=== PATIENT | male | born 1940 | race Caucasian/White ===

== ENCOUNTER 2025-02-14 13:10 | Inpatient (IN) | payer MEDICARE, OTHER ==
[~2025-02-14] VITALS: Ht 165.1 cm; Wt 86.2 kg
[2025-02-14 13:30] LABS: PLATELET COUNT (AUTO) 199 K/uL (152-348); RED BLOOD CELL COUNT(AUTO) 4.40 MIL/uL (4.06-5.63); RED CELL DISTRIBUTION WIDTH 15.5 % (12.1-16.2); WHITE BLOOD COUNT (AUTO) 6.7 K/uL (3.6-10.2)
[2025-02-14 13:41] LABS: CREATININE 0.9 mg/dL (0.6-1.3); SODIUM SERUM 142 mmol/L (136-145); UREA NITROGEN, BLOOD 26 mg/dL (7-18)
[2025-02-14 13:46] LABS: ASPARTATE AMINOTRANSFERASE 8 U/L (15-37); TOTAL PROTEIN, SERUM 6.6 g/dL (6.4-8.2)
[2025-02-14 13:51] LABS: *BILIRUBIN,URIN NEGATIVE (NEGATIVE); *BLOOD, URINE 1+ (NEGATIVE); *CLARITY,URINE CLEAR (CLEAR); *COLOR,URINE YELLOW (YELLOW); *KETONES,URINE NEGATIVE (NEGATIVE); *PROTEIN,URINE 1+ (NEGATIVE); *UROBILINOGEN,URINE 0.2 E.U./dl (NORMAL); LEUKOCYTE ESTERASE ,URINE 1+ (NEGATIVE); NITRITE, URINE NEGATIVE (NEGATIVE)
[2025-02-14 13:57] LABS: UGLUCOSE 2+ (NEGATIVE)
[2025-02-14 14:00] LABS: *AMPHETAMINE, URINE NEGATIVE (NEGATIVE); *BARBITURATE, URINE NEGATIVE (NEGATIVE); *BENZODIAZEPINE, URINE NEGATIVE (NEGATIVE); *CANNABINOID, URINE NEGATIVE (NEGATIVE); *COCCAINE, URINE NEGATIVE (NEGATIVE); *OPIATE, URINE NEGATIVE (NEGATIVE); *PHENCYCLIDINE SCREEN,URINE NEGATIVE (NEGATIVE); FENTANYL, URINE NEGATIVE (NEGATIVE)
[2025-02-14 14:02] LABS: ETHANOL < 3 MG/DL (0-10)
[2025-02-14] MEDS ORDERED: LORA-259 PO (14:04)
[2025-02-14] MEDS ORDERED: MAGN400O6 PO (14:04)
[2025-02-14] MEDS ORDERED: APIX5TAB PO (14:04)
[2025-02-14] MEDS ORDERED: ISOS30TA9 PO (14:04)
[2025-02-14] MEDS ORDERED: PERM60CR TP (14:04)
[2025-02-14] MEDS ORDERED: IVER3TAB2 PO (14:04)
[2025-02-14] MEDS ORDERED: DIVA125T2 PO (14:04)
[2025-02-14] MEDS ORDERED: ATOR40TA PO (14:04)
[2025-02-14] MEDS ORDERED: FAMO10TA41 PO (14:04)
[2025-02-14] MEDS ORDERED: AMLO5TAB6 PO (14:04)
[2025-02-14] MEDS ORDERED: MULT-594 PO (14:04)
[2025-02-14] MEDS ORDERED: SACU1TAB PO (14:04)
[2025-02-14] MEDS ORDERED: FURO-152 PO (14:04)
[2025-02-14] MEDS ORDERED: BISA10SU61 RC (14:04)
[2025-02-14] MEDS ORDERED: DOCU-141 PO (14:04)
[2025-02-14] MEDS ORDERED: [UNRECOGNIZED DRUG - CODE] IN (14:04)
[2025-02-14] MEDS ORDERED: METO25TA6 PO (14:04)
[2025-02-14] MEDS ORDERED: TAMS0.4C PO (14:04)
[2025-02-14] MEDS ORDERED: ACET-2154 PO (14:04)
[2025-02-14] MEDS ORDERED: EMPA10TA PO (14:04)
[2025-02-14] MEDS ORDERED: LEVO75TA7 PO (14:04)
[2025-02-14] MEDS ORDERED: [UNRECOGNIZED DRUG - CODE] PO (14:04)
[2025-02-14 14:21] LABS: SQUAMOUS EPITHELIAL CELL,UR FEW /HPF (NONE SEEN)
[2025-02-14] MEDS ORDERED: OLANZAPINE 5 MG TABLET ONE (15:00)
[2025-02-14] MEDS: OLANZAPINE 5 MG TABLET PO ONE (15:03)
[2025-02-14] MEDS ORDERED: OLANZAPINE 10 MG VIAL IM ONE ×2 (16:07→16:11)
[2025-02-14] MEDS: OLANZAPINE 10 MG VIAL IM ONE (16:15)
[2025-02-14 16:20] VITALS: BP 158/78
[2025-02-14] MEDS ORDERED: NPH,100V SQ ×2 (17:19→17:29)
[2025-02-14] MEDS ORDERED: MULT-365 PO (17:19)
[2025-02-14] MEDS ORDERED: FAMO-132 PO (17:29)
[2025-02-14] MEDS ORDERED: GLUC1VIA21 IM (17:29)
[2025-02-14] MEDS ORDERED: INSU100V44 SQ ×2 (17:29→17:31)
[2025-02-14] MEDS ORDERED: DEXTROSE 50% 50 ML DISP.SYRIN IV PRN (19:00)
[2025-02-14] MEDS ORDERED: MAGNESIUM HYDROXIDE 30 ML LIQUID UDC PO PRN (20:00)
[2025-02-14] MEDS ORDERED: TEMAZEPAM 7.5 MG CAPSULE PO PRN (20:00)
[2025-02-14] MEDS ORDERED: MAG HYDROX/AL HYDROX/SIMETH 30 ML LIQUID UDC PO PRN (20:00)
[2025-02-14 20:10] VITALS: BP 131/79; TEMP 98.1; O2SAT 97
[2025-02-14] MEDS: BLOOD SUGAR DIAGNOSTIC 1 EACH STRIP VI ONE (20:41)
[2025-02-14] MEDS: BLOOD SUGAR DIAGNOSTIC 1 EACH STRIP VI SCH (20:41)
[2025-02-14] MEDS: LORAZEPAM 1 MG TABLET PO PRN (20:55)
[2025-02-15] MEDS: LORAZEPAM 0.5 MG TABLET PO ONE (09:05)
[2025-02-15 09:21] VITALS: BP 134/66; TEMP 98; O2SAT 98
[2025-02-15] MEDS ORDERED: MAGNESIUM HYDROXIDE 30 ML LIQUID UDC PO PRN (10:45)
[2025-02-15] MEDS ORDERED: BISACODYL 10 MG SUPP.RECT RC PRN (10:45)
[2025-02-15] MEDS ORDERED: ACETAMINOPHEN 325 MG TABLET-SA PATIENTS-PAIN ONLY PO PRN (10:45)
[2025-02-15] MEDS ORDERED: INSULIN LISPRO 1000 UNITS/10 ML VIAL(HUMALOG) SQ PRN (10:45)
[2025-02-15] MEDS: INSULIN REGULAR, HUMAN 1000 UNIT/10 ML VIAL SQ PRN (11:39)
[2025-02-15] MEDS ORDERED: INSULIN LISPRO 1000 UNITS/10 ML VIAL(HUMALOG) SQ SCH (12:00)
[2025-02-15] MEDS: ISOSORBIDE DINITRATE 10 MG TABLET PO SCH (12:54)
[2025-02-15] MEDS: LORAZEPAM 1 MG TABLET PO PRN (14:22)
[2025-02-15 15:18] VITALS: BP 132/83; TEMP 98; O2SAT 98
[2025-02-15] MEDS: OLANZAPINE 10 MG VIAL IM ONE (16:25)
[2025-02-15] MEDS: SACUBITRIL/VALSARTAN 24 MG-26 TABLET PO SCH (17:00)
[2025-02-15] MEDS: METOPROLOL TARTRATE 25 MG TABLET PO SCH (17:00)
[2025-02-15] MEDS: APIXABAN 5 MG TABLET PO SCH (17:07)
[2025-02-15 20:00] VITALS: BP 125/47; TEMP 97.7; O2SAT 97
[2025-02-15] MEDS ORDERED: INSULIN NPH 1,000 UNITS/10 ML VIAL SQ SCH (21:00)
[2025-02-15] MEDS: TAMSULOSIN HCL 0.4 MG CAP.SR.24H PO SCH (21:00)
[2025-02-15] MEDS: ATORVASTATIN 40 MG TABLET PO SCH (21:00)
[2025-02-15] MEDS: INSULIN REGULAR, HUMAN 300 UNITS/3 ML VIAL SQ PRN (21:23)
[2025-02-16] MEDS: LEVOTHYROXINE SODIUM 75 MCG TABLET PO SCH (06:47)
[2025-02-16] MEDS: FAMOTIDINE 20 MG TABLET PO SCH (06:48)
[2025-02-16 08:00] VITALS: BP 134/64; TEMP 97.7; O2SAT 99
[2025-02-16] MEDS ORDERED: MULTIVITAMINS W MINERALS PO SCH (09:00)
[2025-02-16] MEDS ORDERED: INSULIN NPH 1,000 UNITS/10 ML VIAL SQ SCH (09:00)
[2025-02-16] MEDS: DIVALPROEX 125 MG TABLET.DR PO SCH (09:51)
[2025-02-16] MEDS: AMLODIPINE 5 MG TABLET PO SCH (09:52)
[2025-02-16] MEDS: DOCUSATE SODIUM 100 MG CAPSULE PO SCH (09:52)
[2025-02-16] MEDS: MULTIVIT, IRON, MIN NO. 8, FA TABLET PO SCH (09:52)
[2025-02-16] MEDS: FUROSEMIDE 20 MG TABLET PO SCH (09:52)
[2025-02-16] MEDS: FINASTERIDE 5 MG TABLET PO SCH (09:52)
[2025-02-16] MEDS: PERMETHRIN 5% CREAM 60 GM TUBE TP SCH (09:59)
[2025-02-16] MEDS: EMPAGLIFLOZIN 10 MG TABLET PO SCH (10:09)
[2025-02-16 16:03] VITALS: BP 133/72; TEMP 97.7; O2SAT 97
[2025-02-16] MEDS: DIVALPROEX SPRINKLE 125 MG CAP.SPRINK PO SCH (17:41)
[2025-02-16 20:22] VITALS: BP 133/73; TEMP 97.7; O2SAT 100
[2025-02-16] MEDS: TEMAZEPAM 7.5 MG CAPSULE PO PRN (23:33)
[2025-02-17] MEDS: IVERMECTIN 3 MG TABLET PO SCH (07:34)
[2025-02-17 08:42] VITALS: BP 107/64; TEMP 97.7; O2SAT 99
[2025-02-17] MEDS: REMEDY ESSENTIAL ZINC PASTE 113 GM TOP PRN (09:03)
[2025-02-17 16:25] VITALS: BP 144/76; TEMP 97.7; O2SAT 100
[2025-02-17 18:54] LABS: PLATELET COUNT (AUTO) 210 K/uL (152-348); RED BLOOD CELL COUNT(AUTO) 4.47 MIL/uL (4.06-5.63); RED CELL DISTRIBUTION WIDTH 15.6 % (12.1-16.2); WHITE BLOOD COUNT (AUTO) 7.1 K/uL (3.6-10.2)
[2025-02-17 20:06] VITALS: BP 132/68; TEMP 97.8; O2SAT 99
[2025-02-17] MEDS: ACETAMINOPHEN 325 MG TABLET PO PRN (23:23)
[2025-02-18 08:24] VITALS: BP 125/57; TEMP 97.7; O2SAT 99
[2025-02-18 16:22] VITALS: BP 120/75; TEMP 97.7; O2SAT 100
[2025-02-18] MEDS: DIVALPROEX 250 MG TABLET.DR PO SCH (20:12)
[2025-02-18 20:15] VITALS: BP 129/64; TEMP 98; O2SAT 98
[2025-02-19 08:46] VITALS: BP 127/83; TEMP 97.8; O2SAT 99
[2025-02-19 17:09] VITALS: BP 98/60; TEMP 97.7; O2SAT 100
[2025-02-19 20:00] VITALS: BP 137/86; TEMP 97.9; O2SAT 98
[2025-02-20 09:50] VITALS: BP 126/60; TEMP 97.9; O2SAT 98
[2025-02-20] MEDS: GEL BASE NO.41 100 GM GEL..GRAM. TOP SCH (16:00)
[2025-02-20 16:27] VITALS: BP 93/48; TEMP 98.1; O2SAT 97
[2025-02-20 20:04] VITALS: BP 112/56; TEMP 97.9; O2SAT 96
[2025-02-21 08:43] VITALS: BP 92/56; TEMP 98; O2SAT 96
[2025-02-21 15:18] VITALS: BP 110/57; TEMP 98; O2SAT 98
[2025-02-21 20:00] VITALS: O2SAT 95
[2025-02-22 07:44] VITALS: BP 99/53; TEMP 98; O2SAT 96
[2025-02-22 12:12] LABS: PLATELET COUNT (AUTO) 147 K/uL (152-348); RED BLOOD CELL COUNT(AUTO) 4.54 MIL/uL (4.06-5.63); RED CELL DISTRIBUTION WIDTH 15.3 % (12.1-16.2); WHITE BLOOD COUNT (AUTO) 6.1 K/uL (3.6-10.2)
[2025-02-22 12:19] LABS: CREATININE 0.8 mg/dL (0.6-1.3); SODIUM SERUM 147 mmol/L (136-145); UREA NITROGEN, BLOOD 39 mg/dL (7-18)
[2025-02-22 15:17] VITALS: BP 120/41; TEMP 97.8; O2SAT 94
[2025-02-23 08:31] VITALS: BP 115/73; TEMP 98; O2SAT 96
[2025-02-23] MEDS: DIVALPROEX SPRINKLE 125 MG CAP.SPRINK PO SCH ×3 (09:52→20:36)
[2025-02-23 12:06] LABS: PLATELET COUNT (AUTO) 166 K/uL (152-348); RED BLOOD CELL COUNT(AUTO) 4.52 MIL/uL (4.06-5.63); RED CELL DISTRIBUTION WIDTH 15.2 % (12.1-16.2); WHITE BLOOD COUNT (AUTO) 6.3 K/uL (3.6-10.2)
[2025-02-23 12:14] LABS: CREATININE 1.0 mg/dL (0.6-1.3); SODIUM SERUM 150 mmol/L (136-145); UREA NITROGEN, BLOOD 37 mg/dL (7-18)
[2025-02-23 15:44] VITALS: BP 138/100; TEMP 97.8; O2SAT 96
[2025-02-23 21:12] VITALS: BP 110/71; TEMP 97.9; O2SAT 93
[2025-02-24 08:08] LABS: PLATELET COUNT (AUTO) 126 K/uL (152-348); RED BLOOD CELL COUNT(AUTO) 4.44 MIL/uL (4.06-5.63); RED CELL DISTRIBUTION WIDTH 16.2 % (12.1-16.2); WHITE BLOOD COUNT (AUTO) 8.3 K/uL (3.6-10.2)
[2025-02-24 08:26] LABS: CREATININE 1.2 mg/dL (0.6-1.3); SODIUM SERUM 149 mmol/L (136-145); UREA NITROGEN, BLOOD 44 mg/dL (7-18)
[2025-02-24 08:46] VITALS: BP 131/68; TEMP 97.8; O2SAT 96
[2025-02-24 16:33] VITALS: BP 131/77; TEMP 98; O2SAT 96
[2025-02-24] MEDS: GLUCERNA SHAKE 237 ML CAN PO SCH (17:18)
[2025-02-24 20:14] VITALS: BP 122/75; TEMP 97.2; O2SAT 98
[2025-02-25 08:43] VITALS: BP 138/67; TEMP 97.8; O2SAT 96
[2025-02-25 12:21] VITALS: BP 149/85
[2025-02-25 12:53] LABS: CREATININE 1.1 mg/dL (0.6-1.3); SODIUM SERUM 151 mmol/L (136-145); UREA NITROGEN, BLOOD 45 mg/dL (7-18)
[2025-02-25] MEDS ORDERED: NUT.237L36 PO (16:28)
[2025-02-25] MEDS ORDERED: HYDR-5156 PO (16:28)
[2025-02-25] MEDS ORDERED: PETR113P TP (16:28)
[2025-02-25] MEDS ORDERED: DIVA125C2 PO ×2 (16:28)
[2025-02-25] MEDS ORDERED: THERAHONEY TP (16:28)
[2025-02-25] MEDS ORDERED: TEMA7.5C PO (16:28)
== END 2025-02-25 15:09 | disposition short-term general hospital (02) | DRG 885 ==
LOC: ER 13:10 → GPS 17:22
PROVIDERS: ADMIT Psychiatry & Neurology Psychosomatic Medicine; ATTEND Nurse Practitioner Family
DX: F29 Unspecified psychosis not due to a substance or known physiological condition (principal); I11.0 Hypertensive heart disease with heart failure; L89.899 Pressure ulcer of other site, unspecified stage; F03.911 Unspecified dementia, unspecified severity, with agitation; I70.248 Atherosclerosis of native arteries of left leg with ulceration of other part of lower leg; R13.10 Dysphagia, unspecified; I50.9 Heart failure, unspecified; N39.0 Urinary tract infection, site not specified; F03.93 Unspecified dementia, unspecified severity, with mood disturbance; E66.9 Obesity, unspecified; E11.40 Type 2 diabetes mellitus with diabetic neuropathy, unspecified; E03.9 Hypothyroidism, unspecified; L97.822 Non-pressure chronic ulcer of other part of left lower leg with fat layer exposed; I48.91 Unspecified atrial fibrillation; E78.5 Hyperlipidemia, unspecified; Z68.31 Body mass index [BMI] 31.0-31.9, adult; N40.0 Benign prostatic hyperplasia without lower urinary tract symptoms; Z91.128 Patient's intentional underdosing of medication regimen for other reason; K21.9 Gastro-esophageal reflux disease without esophagitis; E11.51 Type 2 diabetes mellitus with diabetic peripheral angiopathy without gangrene; I25.10 Atherosclerotic heart disease of native coronary artery without angina pectoris; R26.2 Difficulty in walking, not elsewhere classified; Z79.4 Long term (current) use of insulin; Z79.899 Other long term (current) drug therapy; Z79.84 Long term (current) use of oral hypoglycemic drugs; Z95.0 Presence of cardiac pacemaker
CPT/HCPCS: 36415; 83735; 84100; 85025; 85610; 87086; 93005; G0480; J1815; J2358; J3490

== ENCOUNTER 2025-02-25 15:22 | Inpatient (IN) | payer MEDICARE, OTHER ==
[~2025-02-25] VITALS: Ht 165.1 cm; Wt 86.2 kg
[~2025-02-25 15:22] MED LIST: ACET-2154 PO; AMLO5TAB6 PO; APIX5TAB PO; ATOR40TA PO; BISA10SU61 RC; DOCU-141 PO; EMPA10TA PO; FAMO-132 PO; FURO-152 PO; GLUC1VIA21 IM; INSU100V44 SQ; ISOS30TA9 PO; IVER3TAB2 PO; LEVO75TA7 PO; MAGN400O6 PO; METO25TA6 PO; MULT-365 PO; NPH,100V SQ; PERM60CR TP; SACU1TAB PO; TAMS0.4C PO; [UNRECOGNIZED DRUG - CODE] PO
[2025-02-25] MEDS ORDERED: NUT.237L36 PO (16:28)
[2025-02-25] MEDS ORDERED: PETR113P TP (16:28)
[2025-02-25] MEDS ORDERED: DIVA125C2 PO ×2 (16:28)
[2025-02-25] MEDS ORDERED: LORA-259 PO (16:28)
[2025-02-25] MEDS ORDERED: THERAHONEY TP (16:28)
[2025-02-25] MEDS ORDERED: TEMA7.5C PO (16:28)
[2025-02-25] MEDS ORDERED: HYDR-5156 PO (16:28)
[2025-02-25 16:43] VITALS: BP 144/91; TEMP 97.5; O2SAT 98
[2025-02-25] MEDS ORDERED: BISACODYL 10 MG SUPP.RECT RC PRN (17:30)
[2025-02-25] MEDS ORDERED: MAGNESIUM HYDROXIDE 30 ML LIQUID UDC PO PRN (17:30)
[2025-02-25] MEDS ORDERED: ONDANSETRON 4 MG/2 ML VIAL IV PRN (17:30)
[2025-02-25] MEDS: SACUBITRIL/VALSARTAN 24 MG-26 TABLET PO SCH (18:30)
[2025-02-25 19:48] VITALS: BP 158/90; TEMP 98.5; O2SAT 95
[2025-02-25] MEDS: METOPROLOL TARTRATE 25 MG TABLET PO SCH (20:07)
[2025-02-25] MEDS: LORAZEPAM 1 MG TABLET PO PRN (20:07)
[2025-02-25] MEDS: ISOSORBIDE DINITRATE 20 MG TABLET PO SCH (20:08)
[2025-02-25] MEDS: APIXABAN 5 MG TABLET PO SCH (20:09)
[2025-02-25] MEDS: IV D5 1/2 NS 1000 ML 1,000 ML IV PRN (20:20)
[2025-02-25] MEDS: ATORVASTATIN 40 MG TABLET PO SCH (20:27)
[2025-02-25] MEDS: TAMSULOSIN HCL 0.4 MG CAP.SR.24H PO SCH (20:27)
[2025-02-25] MEDS: GLUCERNA 1.2 1000ML LIQUID PO SCH (21:22)
[2025-02-26] MEDS: TEMAZEPAM 7.5 MG CAPSULE PO PRN (00:53)
[2025-02-26 04:28] VITALS: BP 113/67; TEMP 98; O2SAT 95
[2025-02-26 06:26] LABS: PLATELET COUNT (AUTO) 161 K/uL (152-348); RED BLOOD CELL COUNT(AUTO) 4.67 MIL/uL (4.06-5.63); RED CELL DISTRIBUTION WIDTH 14.9 % (12.1-16.2); WHITE BLOOD COUNT (AUTO) 6.2 K/uL (3.6-10.2)
[2025-02-26 06:44] LABS: CREATININE 1.0 mg/dL (0.6-1.3); SODIUM SERUM 151 mmol/L (136-145); UREA NITROGEN, BLOOD 36 mg/dL (7-18)
[2025-02-26] MEDS: FAMOTIDINE 20 MG TABLET PO SCH (06:44)
[2025-02-26] MEDS: LEVOTHYROXINE SODIUM 75 MCG TABLET PO SCH (06:44)
[2025-02-26 07:47] VITALS: BP 148/97; TEMP 98.4; O2SAT 94
[2025-02-26] MEDS: DOCUSATE SODIUM 100 MG CAPSULE PO SCH (08:30)
[2025-02-26] MEDS: DIVALPROEX SPRINKLE 125 MG CAP.SPRINK PO SCH ×2 (08:30→19:00)
[2025-02-26] MEDS: FINASTERIDE 5 MG TABLET PO SCH (08:35)
[2025-02-26] MEDS: MULTIVITAMINS,THERAPEUTIC TABLET PO SCH (08:35)
[2025-02-26] MEDS: AMLODIPINE 5 MG TABLET PO SCH (08:35)
[2025-02-26] MEDS ORDERED: MEDIHONEY= THERAHONEY 1.5 OZ TUBE TOP SCH (10:00)
[2025-02-26] MEDS: GELATIN SPONGE,ABSORBABLE 1 EACH SPONGE TP SCH (12:19)
[2025-02-26 14:59] VITALS: BP 107/79; TEMP 97.6; O2SAT 93
[2025-02-26 20:59] VITALS: BP 131/62; O2SAT 96
[2025-02-27] VITALS (12 sets, daily range): BP systolic 93–151; BP diastolic 46–80; TEMP 97.3–97.7; O2SAT 92–99
[2025-02-27] MEDS: ACETAMINOPHEN 325 MG TABLET PO PRN (01:05)
[2025-02-27 05:08] LABS: *BILIRUBIN,URIN 1+ (NEGATIVE); *BLOOD, URINE 2+ (NEGATIVE); *CLARITY,URINE TURBID (CLEAR); *COLOR,URINE YELLOW (YELLOW); *KETONES,URINE TRACE (NEGATIVE); *PROTEIN,URINE 1+ (NEGATIVE); *UROBILINOGEN,URINE 1.0 E.U./dl (NORMAL); LEUKOCYTE ESTERASE ,URINE TRACE (NEGATIVE); NITRITE, URINE NEGATIVE (NEGATIVE); UGLUCOSE 3+ (NEGATIVE)
[2025-02-27 05:18] LABS: *CREATININE,URINE 117.3 mg/dL (30-125); *SODIUM RNDM,URINE 47.0 mmol/L (40-220); *URINE TOTAL PROTEIN RANDOM 48.3 mg/dL (<150/24HR)
[2025-02-27 05:28] LABS: YEAST,URINE MANY /HPF (NONE SEEN)
[2025-02-27 05:29] LABS: SQUAMOUS EPITHELIAL CELL,UR FEW /HPF (NONE SEEN)
[2025-02-27 05:59] LABS: PLATELET COUNT (AUTO) 163 K/uL (152-348); RED BLOOD CELL COUNT(AUTO) 4.51 MIL/uL (4.06-5.63); RED CELL DISTRIBUTION WIDTH 14.6 % (12.1-16.2); WHITE BLOOD COUNT (AUTO) 6.3 K/uL (3.6-10.2)
[2025-02-27 06:10] LABS: ASPARTATE AMINOTRANSFERASE 9 U/L (15-37); CREATINE KINASE, TOTAL 94 U/L (39-308); CREATININE 0.9 mg/dL (0.6-1.3); SODIUM SERUM 150 mmol/L (136-145); TOTAL PROTEIN, SERUM 6.4 g/dL (6.4-8.2); UREA NITROGEN, BLOOD 31 mg/dL (7-18)
[2025-02-27] MEDS ORDERED: POTASSIUM CHLORIDE 20 MEQ TAB.PRT.SR PO ONE (10:00)
[2025-02-27] MEDS ORDERED: [UNRECOGNIZED DRUG - CODE] IV (10:13)
[2025-02-27] MEDS: MEDIHONEY= THERAHONEY 1.5 OZ TUBE TOP SCH (10:42)
[2025-02-27] MEDS: IV D5W 1000ML 1,000 ML IV PRN (12:18)
[2025-02-27] MEDS: POTASSIUM CHLORIDE 20 MEQ POWDER PACKET PO ONE (17:12)
[2025-02-28 05:32] VITALS: BP 110/51; TEMP 96.8; O2SAT 95
[2025-02-28 07:19] LABS: PLATELET COUNT (AUTO) 161 K/uL (152-348); RED BLOOD CELL COUNT(AUTO) 4.30 MIL/uL (4.06-5.63); RED CELL DISTRIBUTION WIDTH 14.9 % (12.1-16.2); WHITE BLOOD COUNT (AUTO) 5.6 K/uL (3.6-10.2)
[2025-02-28 07:40] LABS: CREATININE 1.0 mg/dL (0.6-1.3); SODIUM SERUM 145 mmol/L (136-145); UREA NITROGEN, BLOOD 23 mg/dL (7-18)
[2025-02-28 07:42] VITALS: BP 93/50; TEMP 97.5; O2SAT 99
[2025-02-28 09:45] VITALS: BP 124/54; TEMP 97.6; O2SAT 99
[2025-02-28 11:07] LABS: PTH, INTACT 22 pg/mL (15-65)
[2025-02-28 12:02] VITALS: BP 128/71; TEMP 97.7; O2SAT 98
[2025-02-28] MEDS ORDERED: GLUCERNA SHAKE 237 ML CAN PO SCH (17:00)
[2025-03-02 14:09] LABS: A/G RATIO 1.0 (0.7-1.7); BETA GLOBULIN 0.9 g/dL (0.7-1.3); GLOBULIN, TOTAL 2.9 g/dL (2.2-3.9); M-SPIKE Not Observed g/dL (Not Observed); PROTEIN, TOTAL 5.8 g/dL (6.0-8.5)
== END 2025-02-28 13:30 | DRG 640 ==
LOC: MEDSURG3 15:22 → TELE3 02-27 11:40
PROVIDERS: ADMIT Nurse Practitioner Acute Care; ATTEND Nurse Practitioner Acute Care
DX: E86.0 Dehydration (principal); G92.8 Other toxic encephalopathy; Z66 Do not resuscitate; F03.911 Unspecified dementia, unspecified severity, with agitation; E87.0 Hyperosmolality and hypernatremia; N39.0 Urinary tract infection, site not specified; N17.9 Acute kidney failure, unspecified; Z79.01 Long term (current) use of anticoagulants; Z68.31 Body mass index [BMI] 31.0-31.9, adult; E11.51 Type 2 diabetes mellitus with diabetic peripheral angiopathy without gangrene; I70.248 Atherosclerosis of native arteries of left leg with ulceration of other part of lower leg; E03.9 Hypothyroidism, unspecified; I10 Essential (primary) hypertension; F03.93 Unspecified dementia, unspecified severity, with mood disturbance; L97.822 Non-pressure chronic ulcer of other part of left lower leg with fat layer exposed; Z91.199 Patient's noncompliance with other medical treatment and regimen due to unspecified reason; E66.9 Obesity, unspecified; E30.9 Disorder of puberty, unspecified; E78.5 Hyperlipidemia, unspecified; N40.0 Benign prostatic hyperplasia without lower urinary tract symptoms; Z79.890 Hormone replacement therapy; E11.40 Type 2 diabetes mellitus with diabetic neuropathy, unspecified; I48.91 Unspecified atrial fibrillation; Z79.4 Long term (current) use of insulin; Z79.84 Long term (current) use of oral hypoglycemic drugs; K21.9 Gastro-esophageal reflux disease without esophagitis
CPT/HCPCS: 36415; 76770; 83735; 83970; 84100; 84155; 84165; 84300; 85025; 87086; A4606; A6213; G0378; J7042; J7070